=== PATIENT | female | born 1970 | race Caucasian/White ===

== ENCOUNTER 2017-03-29 18:58 | Emergency (ER) | payer MEDICARE ==
--- NOTE | ~2017-03-29 | CR142 ---
[facility] A Service of [facility] & [facility] RADIOLOGY TEXT RESULTS PATIENT: DESIRAE JERONIMO LOCATION: SED : 74 UNIT #: [id number] AGE: [address]: KAMRAN DIEZ SEX: F ORDER DR: [id number] [place] [id number] E MR#: [id number] Acc #: [id number] NAME: DESIRAE JERONIMO : 1970 SEX: F STUDY DATE/TIME: 03/29/2017 20:04 UNIT: SED ROOM: STUDY DESCRIPTION: CR Hand Min 3 Views Rt Attending Physician: Cookie Diez Ordering Physician: Cookie Diez Primary Care Physician: Kaitlin Cummings M.D. MEDICAL IMAGING REPORT This report is preliminary unless electronic signature is present. EXAM Right hand series, dated 03/29/2017. COMPARISON None. HISTORY Possible left wrist and thumb strain 2 days ago with pain. FINDINGS Three views of the right hand were obtained. AP, lateral, and oblique projections of the hand show good mineralization with normal carpal, metacarpal, and phalangeal anatomy without indication of fracture, dislocation, or soft tissue radiopaque foreign body. IMPRESSION Normal right hand. Dictated by... Dena Pisano M.D. THIS IS AN ELECTRONICALLY VERIFIED REPORT Dena Pisano M.D. at 03/30/2017 11:33 AM CPR/jt TD: 03/30/2017 00:50 JOB #: [id number] MEDICAL IMAGING REPORT Page 1 of 1
--- NOTE | ~2017-03-29 | CR141 ---
[facility] A Service [facility] RADIOLOGY TEXT RESULTS PATIENT: DESIRAE JERONIMO LOCATION: SED : 74 UNIT #: [id number] AGE: [address]: KAMRAN DIEZ SEX: F ORDER DR: [id number] [place] [id number] E MR#: [id number] Acc #: [id number] NAME: DESIRAE JERONIMO : 1970 SEX: F STUDY DATE/TIME: 03/29/2017 20:53 UNIT: SED ROOM: STUDY DESCRIPTION: CR Hand Min 3 Views Lt Attending Physician: Cookie Diez Ordering Physician: Cookie Diez Primary Care Physician: Kaitlin Cummings M.D. MEDICAL IMAGING REPORT This report is preliminary unless electronic signature is present. EXAM Left hand series, dated 03/29/2017. COMPARISON Right hand series, dated 03/29/2017. HISTORY Acute pain in the left wrist and thumb for the last two days. Likely sprain. FINDINGS Three views of the left hand were obtained. AP, lateral, and oblique projections of the hand show good mineralization with normal carpal, metacarpal, and phalangeal anatomy without indication of fracture, dislocation, or soft tissue radiopaque foreign body. IMPRESSION Normal left hand. Dictated by... Dena Pisano M.D. THIS IS AN ELECTRONICALLY VERIFIED REPORT Dena Pisano M.D. at 03/30/2017 11:36 AM CPR/jt TD: 03/30/2017 01:08 JOB #: [id number] MEDICAL IMAGING REPORT [facility] A [facility] RADIOLOGY TEXT RESULTS PATIENT: DESIRAE JERONIMO LOCATION: SED : 74 UNIT #: [id number] AGE: [address]: KAMRAN DIEZ SEX: F ORDER DR: Page 1 of 1
[2017-03-29] MEDS ORDERED: TRIGENTA PO (19:21)
[2017-03-29] MEDS ORDERED: GLUCOPHAGE500 MG PO (19:21)
[2017-03-29] MEDS ORDERED: PROTONIX20 MG PO (19:22)
[2017-03-29] MEDS ORDERED: LEVOTHYROXINE25 MCG PO (19:22)
[2017-03-29] MEDS ORDERED: AMARYL PO (19:22)
[2017-03-29] MEDS ORDERED: DITROPAN XL10 MG PO (19:23)
== END 2017-03-29 21:24 | disposition home or self-care (01) ==
LOC: SED 18:58
DX: S63.642A Sprain of metacarpophalangeal joint of left thumb, initial encounter (principal); E11.9 Type 2 diabetes mellitus without complications; K21.9 Gastro-esophageal reflux disease without esophagitis; W22.8XXA Striking against or struck by other objects, initial encounter; Y92.009 Unspecified place in unspecified non-institutional (private) residence as the place of occurrence of the external cause
CPT/HCPCS: 29125; 73130; 99283